=== PATIENT | male | born 1955 | race Caucasian/White ===

== ENCOUNTER 2017-01-16 20:04 | Emergency (ER) ==
[2017-01-16 20:17] VITALS: BP 140/82; TEMP 98.4; BMI 27.1
[2017-01-16 20:20] LABS: BASOPHILS % (AUTO) 0.4 % (0.0-3.0); EOSINOPHILS # (AUTO) 0.1 K/ul (0.0-0.7); EOSINOPHILS % (AUTO) 1.7 % (0.0-7.0); HEMATOCRIT 37.9 % (42.0-52.0); HEMOGLOBIN 12.4 g/dl (14.0-18.0); IMMATURE GRANULOCYTE % (AUTO) 0.6 % (0.0-5.0); LYMPHOCYTES # (AUTO) 3.1 K/uL (0.60-3.4); LYMPHOCYTES % (AUTO) 38.6 (10.0-50.0); MEAN CORPUSCULAR HEMOGLOBIN 27.7 pg (27.0-31.0); MEAN CORPUSCULAR HGB CONC 32.7 (31.8-35.4); MEAN CORPUSCULAR VOLUME 84.8 fl (80.0-94.0); MONOCYTES # (AUTO) 0.7 K/uL (0.4-2.0); MONOCYTES % (AUTO) 9.2 (0-10); NEUTROPHILS % (AUTO) 49.5; PLATELET COUNT 266 10^3/uL (140-440); RED BLOOD COUNT 4.47 10^6/ul (4.70-6.10); WHITE BLOOD COUNT 8.06 K/ul (4.2-10.2)
--- NOTE | 2017-01-16 20:36 | CT ---
EXAM: CT scan brain without contrast HISTORY: Right-sided weakness COMPARISON: CT scan brain 05/24/2014 FINDINGS: Contiguous axial images obtained from the skull base to the convexities without contrast utilizing 5-mm collimation. Coronal reconstructions were imaged and reviewed.. The ventricles and CSF spaces are prominent compatible with age appropriate atrophy. There is periventricular hypodensi ty noted compatible with chronic microvascular disease... Remote lacunar infarcts are seen within t he left thalamus and basal ganglion. Atherosclerotic changes are seen involving the left vertebral and bilateral cavernous internal carotid arteries. IMPRESSION: Age appropriate atrophy with chronic microvascular disease. ASVD. Prior right mastoidectomy
[2017-01-16 20:47] LABS: ALANINE AMINOTRANSFERASE 18 U/L (12-78); ALBUMIN 3.4 g/dL (3.4-5.0); ALBUMIN/GLOBULIN RATIO 1.21; ALKALINE PHOSPHATASE 43 U/L (56-119); ANION GAP 16.3; ASPARTATE AMINO TRANSFERASE 15 U/L (15-37); BILIRUBIN,TOTAL 0.22 mg/dL (0.00-1.20); BLOOD UREA NITROGEN 24 mg/dL (7-18); CALCIUM 9.2 mg/dL (8.2-10.2); CARBON DIOXIDE 23 mmol/L (23-31); CHLORIDE 104 mmol/L (98-107); CREATINE KINASE 30 U/L; CREATININE 1.03 mg/dL (0.60-1.10); GLUCOSE 242 mg/dL (82-115); POTASSIUM 4.3 mmol/L (3.5-5.1); SODIUM 139 mmol/L (136-145); TOTAL PROTEIN 6.2 g/dL (5.8-8.1)
[2017-01-16 21:05] LABS: BILIRUBIN,URINE Negative (NEGATIVE); KETONES,URINE Negative (NEGATIVE); LEUKOCYTE ESTERASE ,URINE 1+ (NEGATIVE); NITRITE,URINE Negative (NEGATIVE); PH,URINE 5.5 (5-9); PROTEIN,URINE 1+ (NEGATIVE); URINE, BLOOD Trace-intact (NEGATIVE)
[2017-01-16 21:06] LABS: ADD URINE MICROSCOPIC YES
[2017-01-16 21:07] LABS: BACTERIA,URINE TRACE (NOT PRESENT)
--- NOTE | 2017-01-16 21:26 | ED.PDOC ---
General ED Provider: Dr. SANGEETHA HAYWARD Chief Complaint: Stroke Stated Complaint: weakness on rt upper extremity started around 7 pm,. says he was in [facility] recent[facility];y for the stroke, no slurry speach, Time Seen by Physician: 21:24 Mode of Arrival: Walk-In Information Source: Patient Primary Care Provider: RUBIO PEDERSEN Nursing and Triage Documentation Reviewed and Agree: Yes Neurological Complaint Exam - Weakness Complaint/Exam Onset: Sudden Symptoms Are: Still present Timing: Constant Episodes Lasting: Hours Initial Severity: Mild Current Severity: Mild Character: Reports: Weak (but can still move, but says he feels weakness in rt UE) Aggravating: Reports: None Alleviating: Reports: None Associated Signs and Symptoms: Denies: Nausea, Vomiting, Diaphoresis, Tinnitus, Chest pain, Short of air, Palpitations, Unsteady gait, GI blood loss, Visual changes, Decreased oral intake, Change in medication, Change in diet, OTC meds, Loss of balance Related History: Similar episode Cardiac Risk Factors: Reports: None CVA Risk Factors: Reports: Hypertension, CAD Related Surgical History: Reports: None JVD Present: No Carotid Bruit Present: No Rectal Heme Positive: No Nystagmus Present: No Gag Reflex Present: No Meningeal Signs Positive: No Focal Weakness: Present: None Focal Sensory Loss: Present: None Gait: Normal [id number]: Normal Findings Romberg Test Positive: No Babinski Sign: Negative Right, Negative Left Differential Diagnoses: Metabolic abnormalities, Other (tia) Quality Indicators for Cardiac Chest Pain: EKG in 10min. Review of Systems - Review Of Systems Constitutional: Reports: No symptoms Eyes: Reports: No symptoms Ears, Nose, Mouth, Throat: Reports: No symptoms Respiratory: Reports: No symptoms Cardiac: Reports: No symptoms GI: Reports: No symptoms : Reports: No symptoms Musculoskeletal: Reports: No symptoms Skin: Reports: No symptoms Neurological: Reports: Numbness, Weakness Endocrine: Reports: No symptoms Hematologic/Lymphatic: Reports: No symptoms All Other Systems: Reviewed and Negative Past Medical History - Past Medical History Previously Healthy: Yes Endocrine: Reports: None Cardiovascular: Reports: Hypertension Respiratory: Reports: COPD Hematological: Reports: None Gastrointestinal: Reports: None Genitourinary: Reports: None Neuro/Psych: Reports: TIA, CVA Musculoskeletal: Reports: Arthritis Cancer: Reports: None - Surgical History General Surgical History: Reports: None - Family History Family History: Reports: None - Social History Smoking Status: Current every day smoker Smoking Cessation Counseling Time: > 3 min - 10 min Alcohol Screening: None Physical Exam - Physical Exam Appearance: Well-appearing, No pain distress, Well-nourished Eyes: SEPIDEH, EOMI, Conjunctiva clear ENT: Ears normal, Nose normal, Oropharynx normal Respiratory: Airway patent, Breath sounds clear, Breath sounds equal, Respirations nonlabored Cardiovascular: RRR, Pulses normal, No rub, No murmur GI/: Soft, Nontender, No masses, Bowel sounds normal, No Organomegaly Musculoskeletal: Normal strength, ROM intact, No edema, No calf tenderness Skin: Warm, Dry, Normal color Neurological: Sensation intact, Motor intact (syas he feels like weak but the strenght is normal on exam.), Reflexes intact, Cranial nerves intact, Alert, Oriented Psychiatric: Affect appropriate, Mood appropriate Re-Evaluation - Re-Evaluation Time of Re-Evaluation: 21:29 (am feeling better i want to go home) Status: Improved Critical Care Note - Critical Care Note Total Time (mins): 0 Course - Course Hematology/Chemistry: 01/16/17 20:15 01/16/17 20:15 Orders, Labs, Meds: Lab Review 01/16/17 01/16/17 01/16/17 20:15 20:30 20:50 WBC 8.06 RBC 4.47 L Hgb 12.4 L Hct 37.9 L MCV 84.8 MCH 27.7 MCHC 32.7 RDW Coeff of [place] 14.5 Plt Count 266 Immature Gran % (Auto) 0.6 Neut % (Auto) 49.5 Lymph % (Auto) 38.6 [place] % (Auto) 9.2 Eos % (Auto) 1.7 Baso % (Auto) 0.4 Immature Gran # (Auto) 0.1 Neut # 4.0 Lymph # 3.1 [place] # 0.7 Eos # 0.1 Baso # 0.0 Sodium 139 Potassium 4.3 Chloride 104 Carbon Dioxide 23 Anion Gap 16.3 BUN 24 H Creatinine 1.03 Estimated GFR (MDRD) 73.00 BUN/Creatinine Ratio 23.30 Glucose 242 H Lactic Acid 11.8 Calcium 9.2 Total Bilirubin 0.22 AST 15 ALT 18 Alkaline Phosphatase 43 L Total Creatine Kinase 30 Troponin I < 0.0100 Total Protein 6.2 Albumin 3.4 Globulin 2.8 Albumin/Globulin Ratio 1.21 Procalcitonin < 0.05 Urine Color Yellow Urine Clarity Clear Urine pH 5.5 Ur Specific [place] 1.025 Urine Protein 1+ Urine Glucose (UA) Trace Urine Ketones Negative Urine Blood Trace-intact Urine Nitrite Negative Urine Bilirubin Negative Urine Urobilinogen 0.2 Ur Leukocyte Esterase 1+ Urine Microscopic RBC 5-10 Urine Microscopic WBC 2-5 Ur Squamous Epith Cells 2-5 Ur Renal Epithelial Cell 0-2 Amorphous Sediment Trace Urine Bacteria Trace Urine Mucus Trace Orders Category Date Time Status EKG-(ED ONLY) Stat CARDIO 01/16/17 20:09 Completed BLOOD CULTURE Stat LAB 01/16/17 20:30 Received CBC W/ AUTO DIFF Stat LAB 01/16/17 20:15 Completed COMPREHENSIVE METABOLIC PANEL Stat LAB 01/16/17 20:15 Completed CREATINE KINASE Stat LAB 01/16/17 20:15 Completed LACTIC ACID Stat LAB 01/16/17 20:30 Completed PROCALCITONIN Stat LAB 01/16/17 20:15 Completed TROPONIN I Stat LAB 01/16/17 20:15 Completed UA [URINALYSIS C & S IF INDICATED] Stat LAB 01/16/17 20:[address] HEAD W/O CONTRAST Stat RADS 01/16/17 20:09 Completed Vital Signs: Temp Pulse Resp BP Pulse Ox 01/16/17 20:06 98.4 F 75 20 140/82 94 L Departure - Departure Time of Disposition: 21:29 Disposition: AMA Discharge Problem: TIA (transient ischemic attack) Qualifiers: Transient cerebral ischemia type: other Qualifier Code: (G45.8) Other transient cerebral ischemic attacks and related syndromes Instructions: Transient Ischemic Attack (ED) Condition: Stable Pt referred to PMD for follow-up: Yes Additional Instructions: ASA 81 po daily if symptoms come back needs to come back patient insisted on going home signed the AMA paper Allergies/Adverse Reactions: Allergies Penicillins Adverse Reaction (Verified 01/16/17 20:34) Disposition Discussed With: Patient, Family (friend)
== END 2017-01-16 21:30 | disposition left against medical advice (07) ==
LOC: ED 20:04
DX: G45.8 Other transient cerebral ischemic attacks and related syndromes (principal); I10 Essential (primary) hypertension; I25.10 Atherosclerotic heart disease of native coronary artery without angina pectoris; Z86.73 Personal history of transient ischemic attack (TIA), and cerebral infarction without residual deficits; F17.210 Nicotine dependence, cigarettes, uncomplicated
CPT/HCPCS: 36415; 80053; 81001; 82550; 83605; 84145; 84484; 85025; 87040; 93005; 93010; 99284